=== PATIENT | male | born 1965 | race Caucasian/White ===

== ENCOUNTER 2018-02-13 11:44 | Inpatient (IN) | payer OTHER ==
[2018-02-13 12:08] VITALS: BMI 26.6
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
[2018-02-13] MEDS ORDERED: ACETAMINOPHEN 325 MG TABLET (FP) PO PRN (14:27)
[2018-02-13] MEDS ORDERED: MENTHOL/PHENOL 1 EACH UD MM PRN (14:27)
[2018-02-13] MEDS ORDERED: MAG HYDROX/AL HYDROX/SIMETH 30 ML UNIT-DOSE CUP PO PRN (14:27)
[2018-02-13] MEDS ORDERED: MAGNESIUM CITRATE 300 ML BOTTLE PO PRN (14:27)
[2018-02-13] MEDS ORDERED: LOPERAMIDE HCL 2 MG CAPSULE PO PRN (14:27)
[2018-02-13] MEDS ORDERED: guaiFENesin/D-METHORPHAN HB 10 ML UNIT-DOSE CUPS PO PRN (14:27)
[2018-02-13] MEDS ORDERED: P-EPHED 60MG/TRIPROLIDI 2.5MG TABLET PO PRN (14:27)
[2018-02-13] MEDS ORDERED: IBUPROFEN 400 MG TABLET (FP) PO PRN (14:27)
[2018-02-13] MEDS ORDERED: NICOTINE POLACRILEX 2 MG GUM BUC PRN (14:27)
[2018-02-13] MEDS ORDERED: MAGNESIUM HYDROX 2400MG/30ML ORAL SUSPENSION 30 ML CUP PO PRN (14:27)
[2018-02-13] MEDS ORDERED: METHADONE HCL 10 MG TABLET (FOR DETOX USE ONLY) PO ONE ×2 (15:35→23:00)
[2018-02-13] MEDS: diazePAM 5 MG TABLET PO PRN ×2 (17:51→22:39)
[2018-02-13] MEDS: NICOTINE 14 MG/24 HOURS TOPICAL PATCH TD SCH (17:53)
[2018-02-13] MEDS ORDERED: MELATONIN 5 MG TABLETS PO PRN (22:00)
[2018-02-13] MEDS: THIAMINE HCL 100 MG TABLET (FP) PO SCH (22:39)
[2018-02-14] MEDS ORDERED: TRIMETHOBENZAMIDE HCL 200MG/2ML INJ IM PRN (03:05)
[2018-02-14] MEDS: diazePAM 5 MG TABLET PO PRN ×3 (04:22→21:04)
[2018-02-14] MEDS ORDERED: METHADONE HCL 10 MG TABLET (FOR DETOX USE ONLY) PO ONE (10:00)
[2018-02-14] MEDS: PRENATAL VITAMINS W/ FOLIC ACID TABLET (FP) PO SCH (10:27)
[2018-02-14] MEDS: NICOTINE 14 MG/24 HOURS TOPICAL PATCH TD SCH (10:27)
[2018-02-14 10:58] LABS: HEMATOCRIT 39.7 % (35.4-49); HEMOGLOBIN 13.2 GM/dL (11.7-16.9); MCH 30.5 pg (25.7-33.7); MCHC 33.4 g/dl (32.0-35.9); MEAN CELL VOLUME 91.4 fl (80-96); MEAN PLT VOLUME 10.1 fl (7.5-11.1); PLATELET COUNT 170 K/MM3 (134-434); RBC 4.34 M/mm3 (4.00-5.60); RDW 14.2 % (11.9-15.9); WHITE BLOOD COUNT 6.4 K/mm3 (4.0-10.0)
--- NOTE | 2018-02-14 11:01 | PN ---
[facility]HS COWS - Scale Resting Pulse: 0= [place] 80 or Below Sweatin= Chills/Flushing Restless Observation: 3= Extraneous Movement Pupil Size: 1= Pupils >than Normal Bone or Joint Aches: 2= Severe Diffuse Aches Runny Nose/ Eye Tearin= Runny Nose/Eyes GI Upset > 30mins: 3= Vomiting/Diarrhea Tremor Observation of Outstretched Hands: 2= Slight Tremor Visible Yawning Observation: 1= 1-2x During Session Anxiety or Irritability: 2=Irritable/Anxious Goose Flesh Skin: 0=Smooth Skin COWS Score: 17 S Progress Note (SOAP) Subjective: alert,irritable,anxious,interrupted sleep,tremor,pain in the body and back Objective: 02/14/18 10:59 Vital Signs Temperature 98.7 F 02/14/18 09:52 Pulse Rate 77 02/14/18 09:52 Respiratory Rate 20 02/14/18 09:52 Blood Pressure 154/80 02/14/18 09:52 O2 Sat by Pulse Oximetry (%) ekg sinus bradycardia 54/min qt/qtc 424/402 no chest pain,no sob,no dizziness Laboratory Last Values WBC 6.4 K/mm3 (4.0-10.0) 02/14/18 06:00 RBC 4.34 M/mm3 (4.00-5.60) 02/14/18 06:00 Hgb 13.2 GM/dL (11.7-16.9) 02/14/18 06:00 Hct 39.7 % (35.4-49) 02/14/18 06:00 MCV 91.4 fl (80-96) 02/14/18 06:00 MCH 30.5 pg (25.7-33.7) 02/14/18 06:00 MCHC 33.4 g/dl (32.0-35.9) 02/14/18 06:00 RDW 14.2 % (11.9-15.9) 02/14/18 06:00 Plt Count 170 K/MM3 (134-434) 02/14/18 06:00 MPV 10.1 fl (7.5-11.1) 02/14/18 06:00 labs pending Assessment: 02/14/18 11:00 withdrawal symptom Plan: continue detox
[2018-02-14 11:31] LABS: CHLORIDE 105 mmol/L (98-107); POTASSIUM 5.2 mmol/L (3.5-5.1); SODIUM 141 mmol/L (136-145)
[2018-02-14 11:55] LABS: SICKLE CELL SCREEN NEGATIVE (NEGATIVE)
[2018-02-14 11:58] LABS: ALBUMIN 3.8 g/dl (3.4-5.0); ALK PHOS 60 U/L (45-117); ANION GAP 8 MMOL/L (8-16); BILIRUBIN,TOTAL 0.4 mg/dL (0.2-1.0); BLOOD UREA NITROGEN 20 mg/dL (7-18); CALCIUM 9.1 mg/dL (8.5-10.1); CO2 28 mmol/L (21-32); CREATININE 0.8 mg/dL (0.7-1.3); GLUCOSE,RANDOM 79 mg/dL (74-106); SGOT/AST 21 U/L (15-37); SGPT/ALT 24 U/L (12-78); TOT PROT 7.3 g/dl (6.4-8.2)
[2018-02-14] MEDS: ONDANSETRON *ODT* 4 MG TABLET SL PRN ×2 (12:07→18:17)
[2018-02-14] MEDS: CYCLOBENZAPRINE HCL 10 MG TABLET (FP) PO PRN ×2 (12:07→21:03)
[2018-02-14] MEDS: cloNIDine HCL 0.1 MG TABLET PO SCH ×2 (12:07→21:03)
--- NOTE | 2018-02-14 20:18 | EKG ---
Test Reason : Blood Pressure : / mmHG Vent. Rate : 054 BPM Atrial Rate : 054 BPM P-R Int : 140 ms QRS Dur : 100 ms QT Int : 424 ms P-R-T Axes : 052 -04 014 degrees QTc Int : 402 ms SINUS BRADYCARDIA OTHERWISE NORMAL ECG NO PREVIOUS ECGS AVAILABLE Confirmed by WARNER DE LUNA MD ([id number]) on 02/14/2018 8:18:07 PM Referred By: Confirmed By:WARNER DE LUNA MD
[2018-02-14] MEDS: THIAMINE HCL 100 MG TABLET (FP) PO SCH (22:57)
[2018-02-15] MEDS ORDERED: METHADONE HCL 5 MG TABLET (FOR DETOX USE ONLY) PO ONE (10:00)
--- NOTE | 2018-02-15 10:12 | PN ---
S CIWA - CIWA Score Nausea/Vomitin Muscle Tremors: 3 Anxiety: 3 Agitation: 3 Paroxysmal Sweats: 2 Orientation: 0-Oriented Tacttile Disturbances: 1-Very Mild Itch/Numbness Auditory Disturbances: 1-Very Mild Visual Disturbances: 0-None Headache: 2-Mild CIWA-Ar Total Score: 18 S Progress Note (SOAP) Subjective: alert,irritable,anxious,interrupted sleep,tremor,vomiting Objective: 02/15/18 10:18 Vital Signs Temperature 98.2 F 02/15/18 09:25 Pulse Rate 72 02/15/18 09:25 Respiratory Rate 19 02/15/18 09:25 Blood Pressure 152/79 02/15/18 09:25 O2 Sat by Pulse Oximetry (%) Laboratory Last Values WBC 6.4 K/mm3 (4.0-10.0) 02/14/18 06:00 RBC 4.34 M/mm3 (4.00-5.60) 02/14/18 06:00 Hgb 13.2 GM/dL (11.7-16.9) 02/14/18 06:00 Hct 39.7 % (35.4-49) 02/14/18 06:00 MCV 91.4 fl (80-96) 02/14/18 06:00 MCH 30.5 pg (25.7-33.7) 02/14/18 06:00 MCHC 33.4 g/dl (32.0-35.9) 02/14/18 06:00 RDW 14.2 % (11.9-15.9) 02/14/18 06:00 Plt Count 170 K/MM3 (134-434) 02/14/18 06:00 MPV 10.1 fl (7.5-11.1) 02/14/18 06:00 Sickle Cell Screen Negative (NEGATIVE) 02/14/18 06:00 Sodium 141 mmol/L (136-145) 02/14/18 06:00 Potassium 5.2 mmol/L (3.5-5.1) H 02/14/18 06:00 Chloride 105 mmol/L (98-107) 02/14/18 06:00 Carbon Dioxide 28 mmol/L (21-32) 02/14/18 06:00 Anion Gap 8 MMOL/L (8-16) 02/14/18 06:00 BUN 20 mg/dL (7-18) H 02/14/18 06:00 Creatinine 0.8 mg/dL (0.7-1.3) 02/14/18 06:00 Creat Clearance w eGFR > 60 (>60) 02/14/18 06:00 Random Glucose 79 mg/dL (74-106) 02/14/18 06:00 Calcium 9.1 mg/dL (8.5-10.1) 02/14/18 06:00 Total Bilirubin 0.4 mg/dL (0.2-1.0) 02/14/18 06:00 AST 21 U/L (15-37) 02/14/18 06:00 ALT 24 U/L (12-78) 02/14/18 06:00 Alkaline Phosphatase 60 U/L (45-117) 02/14/18 06:00 Total Protein 7.3 g/dl (6.4-8.2) 02/14/18 06:00 Albumin 3.8 g/dl (3.4-5.0) 02/14/18 06:00 RPR Titer Nonreactive (NONREACTIVE) 02/14/18 06:00 HIV 1&2 Antibody Screen Negative 02/13/18 15:00 HIV P24 Antigen Negative 02/13/18 15:00 Assessment: 02/15/18 10:19 withdrawal symptom Plan: continue detox,encourage fluid,dehydration,repeat bmp today
[2018-02-15] MEDS: cloNIDine HCL 0.1 MG TABLET PO SCH ×2 (11:07→22:22)
[2018-02-15] MEDS: PRENATAL VITAMINS W/ FOLIC ACID TABLET (FP) PO SCH (11:07)
[2018-02-15] MEDS: NICOTINE 14 MG/24 HOURS TOPICAL PATCH TD SCH (11:08)
[2018-02-15 15:38] LABS: ANION GAP 12 MMOL/L (8-16); BLOOD UREA NITROGEN 12 mg/dL (7-18); CALCIUM 9.5 mg/dL (8.5-10.1); CHLORIDE 104 mmol/L (98-107); CO2 26 mmol/L (21-32); CREATININE 0.8 mg/dL (0.7-1.3); GLUCOSE,RANDOM 116 mg/dL (74-106); SODIUM 142 mmol/L (136-145)
[2018-02-15 16:38] LABS: URINE APPEARANCE CLEAR; URINE BILIRUBIN NEGATIVE (<2.0 mg/dL); URINE COLOR YELLOW; URINE GLUCOSE (UA) NEGATIVE (NEGATIVE); URINE KETONE NEGATIVE (NEGATIVE); URINE LEUK ESTERASE NEGATIVE (NEGATIVE); URINE NITRITE NEGATIVE (NEGATIVE); URINE PROTEIN NEGATIVE (NEGATIVE); URINE UROBILINOGEN NEGATIVE mg/dL (0.2-1.0)
[2018-02-15] MEDS: diazePAM 5 MG TABLET PO PRN (22:22)
[2018-02-15] MEDS: THIAMINE HCL 100 MG TABLET (FP) PO SCH (22:22)
[2018-02-15] MEDS: CYCLOBENZAPRINE HCL 10 MG TABLET (FP) PO PRN (22:23)
[2018-02-16] MEDS ORDERED: METHADONE HCL 5 MG TABLET (FOR DETOX USE ONLY) PO ONE (10:00)
[2018-02-16] MEDS: NICOTINE 14 MG/24 HOURS TOPICAL PATCH TD SCH (10:48)
[2018-02-16] MEDS: PRENATAL VITAMINS W/ FOLIC ACID TABLET (FP) PO SCH (10:48)
[2018-02-16] MEDS: cloNIDine HCL 0.1 MG TABLET PO SCH ×2 (10:48→22:42)
--- NOTE | 2018-02-16 10:54 | PN ---
BHS Progress Note (SOAP) Subjective: alert,irritable,anxious,interrupted sleep,tremor,pain in the body and back Objective: 02/16/18 10:53 Vital Signs Temperature 98.4 F 02/16/18 10:10 Pulse Rate 91 H 02/16/18 10:10 Respiratory Rate 18 02/16/18 10:10 Blood Pressure 124/92 02/16/18 10:10 O2 Sat by Pulse Oximetry (%) Assessment: 02/16/18 10:54 withdrawal symptom Plan: continue detox
[2018-02-16] MEDS: CYCLOBENZAPRINE HCL 10 MG TABLET (FP) PO PRN (22:42)
[2018-02-16] MEDS: THIAMINE HCL 100 MG TABLET (FP) PO SCH (22:42)
[2018-02-17] MEDS ORDERED: METHADONE HCL 10 MG TABLET (FOR DETOX USE ONLY) PO ONE (10:00)
[2018-02-17] MEDS: PRENATAL VITAMINS W/ FOLIC ACID TABLET (FP) PO SCH (11:04)
[2018-02-17] MEDS: NICOTINE 14 MG/24 HOURS TOPICAL PATCH TD SCH (11:04)
[2018-02-17] MEDS: cloNIDine HCL 0.1 MG TABLET PO SCH ×2 (11:04→23:02)
--- NOTE | 2018-02-17 11:40 | PN ---
BHS Progress Note (SOAP) Subjective: Shakes, sweats and interrupted sleep Objective: 02/17/18 11:39 Vital Signs - 8 hr 02/17/18 02/17/18 02/17/18 06:00 06:30 09:20 Temperature 97.5 F L 98.1 F Pulse Rate 66 66 Respiratory 18 19 18 Rate Blood Pressure 125/73 121/65 Laboratory Last Values WBC 6.4 K/mm3 (4.0-10.0) 02/14/18 06:00 RBC 4.34 M/mm3 (4.00-5.60) 02/14/18 06:00 Hgb 13.2 GM/dL (11.7-16.9) 02/14/18 06:00 Hct 39.7 % (35.4-49) 02/14/18 06:00 MCV 91.4 fl (80-96) 02/14/18 06:00 MCH 30.5 pg (25.7-33.7) 02/14/18 06:00 MCHC 33.4 g/dl (32.0-35.9) 02/14/18 06:00 RDW 14.2 % (11.9-15.9) 02/14/18 06:00 Plt Count 170 K/MM3 (134-434) 02/14/18 06:00 MPV 10.1 fl (7.5-11.1) 02/14/18 06:00 Sickle Cell Screen Negative (NEGATIVE) 02/14/18 06:00 Sodium 142 mmol/L (136-145) 02/15/18 11:40 Potassium 4.0 mmol/L (3.5-5.1) D 02/15/18 11:40 Chloride 104 mmol/L (98-107) 02/15/18 11:40 Carbon Dioxide 26 mmol/L (21-32) 02/15/18 11:40 Anion Gap 12 MMOL/L (8-16) 02/15/18 11:40 BUN 12 mg/dL (7-18) 02/15/18 11:40 Creatinine 0.8 mg/dL (0.7-1.3) 02/15/18 11:40 Creat Clearance w eGFR > 60 (>60) 02/15/18 11:40 Random Glucose 116 mg/dL (74-106) H D 02/15/18 11:40 Calcium 9.5 mg/dL (8.5-10.1) 02/15/18 11:40 Total Bilirubin 0.4 mg/dL (0.2-1.0) 02/14/18 06:00 AST 21 U/L (15-37) 02/14/18 06:00 ALT 24 U/L (12-78) 02/14/18 06:00 Alkaline Phosphatase 60 U/L (45-117) 02/14/18 06:00 Total Protein 7.3 g/dl (6.4-8.2) 02/14/18 06:00 Albumin 3.8 g/dl (3.4-5.0) 02/14/18 06:00 Urine Color Yellow 02/15/18 11:40 Urine Appearance Clear 02/15/18 11:40 Urine pH 8.0 (5.0-8.0) 02/15/18 11:40 Ur Specific [place] 1.015 (1.001-1.035) 02/15/18 11:40 Urine Protein Negative (NEGATIVE) 02/15/18 11:40 Urine Glucose (UA) Negative (NEGATIVE) 02/15/18 11:40 Urine Ketones Negative (NEGATIVE) 02/15/18 11:40 Urine Blood Negative (NEGATIVE) 02/15/18 11:40 Urine Nitrite Negative (NEGATIVE) 02/15/18 11:40 Urine Bilirubin Negative (<2.0 mg/dL) 02/15/18 11:40 Urine Urobilinogen Negative mg/dL (0.2-1.0) 02/15/18 11:40 Ur Leukocyte Esterase Negative (NEGATIVE) 02/15/18 11:40 RPR Titer Nonreactive (NONREACTIVE) 02/14/18 06:00 HIV 1&2 Antibody Screen Negative 02/13/18 15:00 HIV P24 Antigen Negative 02/13/18 15:00 Labs noted Assessment: 02/17/18 11:40 Withdrawal sx Plan: Continue detox
[2018-02-17] MEDS: THIAMINE HCL 100 MG TABLET (FP) PO SCH (23:02)
[2018-02-17] MEDS: CYCLOBENZAPRINE HCL 10 MG TABLET (FP) PO PRN (23:02)
[2018-02-18] MEDS ORDERED: METHADONE HCL 5 MG TABLET (FOR DETOX USE ONLY) PO ONE (06:00)
--- NOTE | 2018-02-18 09:10 | PN ---
[facility] Progress Note (SOAP) Subjective: Being discharged today. Denies withdrawal symptoms.Verbalizes an understanding of relapse prevention. States will f/u with outpatient referrals. Objective: Alert and oriented x 3. Respirations quiet and unlabored. Gait steady. Laboratory Tests 02/13/18 02/14/18 02/14/18 15:00 06:00 06:00 WBC 6.4 RBC 4.34 Hgb 13.2 Hct 39.7 MCV 91.4 MCH 30.5 MCHC 33.4 RDW 14.2 Plt Count 170 MPV 10.1 Sickle Cell Screen Negative Sodium 141 Potassium 5.2 H Chloride 105 Carbon Dioxide 28 Anion Gap 8 BUN 20 H Creatinine 0.8 Creat Clearance w eGFR > 60 Random Glucose 79 Calcium 9.1 Total Bilirubin 0.4 AST 21 ALT 24 Alkaline Phosphatase 60 Total Protein 7.3 Albumin 3.8 Urine Color Urine Appearance Urine pH Ur Specific [place] Urine Protein Urine Glucose (UA) Urine Ketones Urine Blood Urine Nitrite Urine Bilirubin Urine Urobilinogen Ur Leukocyte Esterase RPR Titer HIV 1&2 Antibody Screen Negative HIV P24 Antigen Negative 02/14/18 02/15/18 02/15/18 06:00 11:40 11:40 WBC RBC Hgb Hct MCV MCH MCHC RDW Plt Count MPV Sickle Cell Screen Sodium 142 Potassium 4.0 D Chloride 104 Carbon Dioxide 26 Anion Gap 12 BUN 12 Creatinine 0.8 Creat Clearance w eGFR > 60 Random Glucose 116 H D Calcium 9.5 Total Bilirubin AST ALT Alkaline Phosphatase Total Protein Albumin Urine Color Yellow Urine Appearance Clear Urine pH 8.0 Ur Specific [place] 1.015 Urine Protein Negative Urine Glucose (UA) Negative Urine Ketones Negative Urine Blood Negative Urine Nitrite Negative Urine Bilirubin Negative Urine Urobilinogen Negative Ur Leukocyte Esterase Negative RPR Titer Nonreactive HIV 1&2 Antibody Screen HIV P24 Antigen Vital Signs (72 hours) 02/15/18 02/15/18 02/15/18 15:02 17:19 22:48 Temperature 97.9 F 98.4 F 98.4 F Pulse Rate 73 83 80 Respiratory 19 19 18 Rate Blood Pressure 133/93 129/70 164/89 02/16/18 02/16/18 02/16/18 03:30 07:09 10:10 Temperature 97.7 F 98.4 F Pulse Rate 71 91 H Respiratory 18 18 18 Rate Blood Pressure 143/79 124/92 02/16/18 02/16/1802/16/18 14:12 18:11 22:35 Temperature 97.7 F 97.9 F 98.2 F Pulse Rate 80 84 78 Respiratory 16 19 19 Rate Blood Pressure 115/59 111/61 132/89 02/17/18 02/17/18 02/17/18 00:30 03:30 06:00 Temperature 97.5 F L Pulse Rate 66 Respiratory 19 18 18 Rate Blood Pressure 125/73 02/17/18 02/17/18 02/17/18 06:30 09:20 14:46 Temperature 98.1 F 98.1 F Pulse Rate 66 82 Respiratory 19 18 18 Rate Blood Pressure 121/65 107/60 02/17/18 02/17/18 02/18/18 17:38 22:44 06:00 Temperature 98.4 F 98.1 F 97.7 F Pulse Rate 71 76 70 Respiratory 18 18 18 Rate Blood Pressure 126/57 127/79 121/72 02/18/18 10:00 Temperature 97.5 F L Pulse Rate 61 Respiratory 16 Rate Blood Pressure 126/79 Labs and V/S reviewed. 02/18/18 12:53 Assessment: No withdrawal symptoms. 02/18/18 12:56
[2018-02-18 11:14] VITALS: BP 126/79; PULSE 61; TEMP 97.5
--- NOTE | 2018-02-18 13:03 | DS ---
[facility] Detox Discharge Summary Admission Date: 02/13/18 Discharge Date: 02/18/18 - History Present History: Opioid Dependence Pertinent Past History: Denies significant PMH. Will continue f/u PCP as needed. - Physical Exam Results Vital Signs: Vital Signs Temperature 97.5 F L 02/18/18 10:00 Pulse Rate 61 02/18/18 10:00 Respiratory Rate 16 02/18/18 10:00 Blood Pressure 126/79 02/18/18 10:00 O2 Sat by Pulse Oximetry (%) Pertinent Admission Physical Exam Findings: Withdrawal symptoms. Laboratory Tests 02/13/18 02/14/18 02/14/18 15:00 06:00 06:00 WBC 6.4 RBC 4.34 Hgb 13.2 Hct 39.7 MCV 91.4 MCH 30.5 MCHC 33.4 RDW 14.2 Plt Count 170 MPV 10.1 Sickle Cell Screen Negative Sodium 141 Potassium 5.2 H Chloride 105 Carbon Dioxide 28 Anion Gap 8 BUN 20 H Creatinine 0.8 Creat Clearance w eGFR > 60 Random Glucose 79 Calcium 9.1 Total Bilirubin 0.4 AST 21 ALT 24 Alkaline Phosphatase 60 Total Protein 7.3 Albumin 3.8 Urine Color Urine Appearance Urine pH Ur Specific [place] Urine Protein Urine Glucose (UA) Urine Ketones Urine Blood Urine Nitrite Urine Bilirubin Urine Urobilinogen Ur Leukocyte Esterase RPR Titer HIV 1&2 Antibody Screen Negative HIV P24 Antigen Negative 02/14/18 02/15/18 02/15/18 06:00 11:40 11:40 WBC RBC Hgb Hct MCV MCH MCHC RDW Plt Count MPV Sickle Cell Screen Sodium 142 Potassium 4.0 D Chloride 104 Carbon Dioxide 26 Anion Gap 12 BUN 12 Creatinine 0.8 Creat Clearance w eGFR > 60 Random Glucose 116 H D Calcium 9.5 Total Bilirubin AST ALT Alkaline Phosphatase Total Protein Albumin Urine Color Yellow Urine Appearance Clear Urine pH 8.0 Ur Specific [place] 1.015 Urine Protein Negative Urine Glucose (UA) Negative Urine Ketones Negative Urine Blood Negative Urine Nitrite Negative Urine Bilirubin Negative Urine Urobilinogen Negative Ur Leukocyte Esterase Negative RPR Titer Nonreactive HIV 1&2 Antibody Screen HIV P24 Antigen Labs reviewed. - Treatment Hospital Course: Detox Protocol Followed, Detoxed Safely, Responded well, Discharged Condition Good - Medication Discharge Medications: Ambulatory Orders NK [No Known Home Medication] 02/13/18 - Diagnosis (1) Dehydration Status: Acute (2) Nicotine dependence Status: Acute Qualifiers: Nicotine product type: cigarettes Substance use status: in withdrawal Qualified Code(s): F17.213 - Nicotine dependence, cigarettes, with withdrawal (3) Opioid dependence with withdrawal Status: Acute - AMA Did Patient Leave Against Medical Advice: No
== END 2018-02-18 09:39 | disposition home or self-care (01) | DRG 897 ==
LOC: YASAS 11:44 → Y6N 15:19
PROVIDERS: ADMIT Surgery; ATTEND Surgery
PROC: HZ2ZZZZ Detoxification Services for Substance Abuse Treatment (ICD-10-PCS; principal; 2018-02-13)
DX: F11.23 Opioid dependence with withdrawal (principal); F17.213 Nicotine dependence, cigarettes, with withdrawal; E86.0 Dehydration
CPT/HCPCS: 36415; 71045-TC-FY; 80048; 80053; 81003; 85027; 85660; 86593; 87389; 93005; 93010; J0735; Q0162

== ENCOUNTER 2018-10-06 14:19 | Inpatient (IN) | payer OTHER ==
[2018-10-06 15:55] VITALS: BMI 26.4
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
[2018-10-06] MEDS ORDERED: MAGNESIUM HYDROX 2400MG/30ML ORAL SUSPENSION 30 ML CUP PO PRN (17:19)
[2018-10-06] MEDS ORDERED: MAG HYDROX/AL HYDROX/SIMETH 30 ML UNIT-DOSE CUP PO PRN (17:19)
[2018-10-06] MEDS ORDERED: MAGNESIUM CITRATE 300 ML BOTTLE PO PRN (17:19)
[2018-10-06] MEDS ORDERED: BISMUTH SUBSALICYLATE 524 MG/30 ML UD PO PRN (17:19)
[2018-10-06] MEDS ORDERED: MENTHOL/PHENOL 1 EACH UD MM PRN (17:19)
[2018-10-06] MEDS ORDERED: METHOCARBAMOL 500 MG TABLET PO PRN (17:19)
[2018-10-06] MEDS ORDERED: ACETAMINOPHEN 325 MG TABLET (FP) PO PRN ×2 (17:19)
[2018-10-06] MEDS ORDERED: METHADONE HCL 10 MG TABLET (FOR DETOX USE ONLY) PO ONE ×2 (17:21→23:00)
[2018-10-06] MEDS: diazePAM 5 MG TABLET PO PRN (18:13)
[2018-10-06] MEDS: NICOTINE 14 MG/24 HOURS TOPICAL PATCH TD SCH (18:14)
[2018-10-06] MEDS: HYDROCORTISONE 0.5% TOPICAL CREAM 30 GM TUBE TP SCH (22:29)
[2018-10-06] MEDS: THIAMINE HCL 100 MG TABLET (FP) PO SCH (22:30)
[2018-10-07] MEDS ORDERED: METHADONE HCL 10 MG TABLET (FOR DETOX USE ONLY) PO ONE (10:00)
[2018-10-07] MEDS: HYDROCORTISONE 0.5% TOPICAL CREAM 30 GM TUBE TP SCH ×2 (10:23→22:04)
[2018-10-07] MEDS: diazePAM 5 MG TABLET PO PRN ×2 (10:23→22:06)
[2018-10-07] MEDS: PRENATAL VITAMINS W/ FOLIC ACID TABLET (FP) PO SCH (10:23)
[2018-10-07] MEDS: NICOTINE 14 MG/24 HOURS TOPICAL PATCH TD SCH (10:23)
[2018-10-07 10:25] LABS: ALBUMIN 3.3 g/dl (3.4-5.0); ALK PHOS 62 U/L (45-117); ANION GAP 4 MMOL/L (8-16); BILIRUBIN,TOTAL 0.3 mg/dL (0.2-1); BLOOD UREA NITROGEN 17 mg/dL (7-18); CALCIUM 8.3 mg/dL (8.5-10.1); CHLORIDE 107 mmol/L (98-107); CO2 28 mmol/L (21-32); CREATININE 0.7 mg/dL (0.55-1.3); GLUCOSE,RANDOM 96 mg/dL (74-106); POTASSIUM 4.4 mmol/L (3.5-5.1); SGOT/AST 17 U/L (15-37); SGPT/ALT 19 U/L (13-61); SODIUM 139 mmol/L (136-145); TOT PROT 6.6 g/dl (6.4-8.2)
[2018-10-07 10:27] LABS: HEMATOCRIT 41.9 % (35.4-49); HEMOGLOBIN 13.7 GM/dL (11.7-16.9); MCH 30.9 pg (25.7-33.7); MCHC 32.7 g/dl (32.0-35.9); MEAN CELL VOLUME 94.3 fl (80-96); MEAN PLT VOLUME 9.2 fl (7.5-11.1); PLATELET COUNT 174 K/MM3 (134-434); RBC 4.45 M/mm3 (4.00-5.60); RDW 13.8 % (11.9-15.9); WHITE BLOOD COUNT 4.5 K/mm3 (4.0-10.0)
--- NOTE | 2018-10-07 15:03 | PN ---
BHS COWS - Scale Resting Pulse: 0= [place] 80 or Below Sweatin= Chills/Flushing Restless Observation: 1= Difficult to Sit Still Pupil Size: 1= Pupils >than Normal Bone or Joint Aches: 1= Mild Discomfort Runny Nose/ Eye Tearin= Nasal Congestion GI Upset > 30mins: 1= Stomach Cramp Tremor Observation of Outstretched Hands: 2= Slight Tremor Visible Yawning Observation: 1= 1-2x During Session Anxiety or Irritability: 2=Irritable/Anxious Goose Flesh Skin: 3=Piloerection COWS Score: 14 BHS Progress Note (SOAP) Subjective: restlessness anxiousness trouble sleep at night Objective: 10/07/18 15:02 Vital Signs Temperature 97.6 F 10/07/18 13:46 Pulse Rate 76 10/07/18 13:46 Respiratory Rate 18 10/07/18 13:46 Blood Pressure 125/85 10/07/18 13:46 O2 Sat by Pulse Oximetry (%) Laboratory Last Values WBC 4.5 K/mm3 (4.0-10.0) 10/07/18 07:15 RBC 4.45 M/mm3 (4.00-5.60) 10/07/18 07:15 Hgb 13.7 GM/dL (11.7-16.9) 10/07/18 07:15 Hct 41.9 % (35.4-49) 10/07/18 07:15 MCV 94.3 fl (80-96) 10/07/18 07:15 MCH 30.9 pg (25.7-33.7) 10/07/18 07:15 MCHC 32.7 g/dl (32.0-35.9) 10/07/18 07:15 RDW 13.8 % (11.9-15.9) 10/07/18 07:15 Plt Count 174 K/MM3 (134-434) 10/07/18 07:15 MPV 9.2 fl (7.5-11.1) 10/07/18 07:15 Sodium 139 mmol/L (136-145) 10/07/18 07:15 Potassium 4.4 mmol/L (3.5-5.1) 10/07/18 07:15 Chloride 107 mmol/L (98-107) 10/07/18 07:15 Carbon Dioxide 28 mmol/L (21-32) 10/07/18 07:15 Anion Gap 4 MMOL/L (8-16) L 10/07/18 07:15 BUN 17 mg/dL (7-18) 10/07/18 07:15 Creatinine 0.7 mg/dL (0.55-1.3) 10/07/18 07:15 Creat Clearance w eGFR 118.89 (>60) 10/07/18 07:15 Random Glucose 96 mg/dL (74-106) 10/07/18 07:15 Calcium 8.3 mg/dL (8.5-10.1) L 10/07/18 07:15 Total Bilirubin 0.3 mg/dL (0.2-1) 10/07/18 07:15 AST 17 U/L (15-37) 10/07/18 07:15 ALT 19 U/L (13-61) 10/07/18 07:15 Alkaline Phosphatase 62 U/L (45-117) 10/07/18 07:15 Total Protein 6.6 g/dl (6.4-8.2) 10/07/18 07:15 Albumin 3.3 g/dl (3.4-5.0) L 10/07/18 07:15 RPR Titer Nonreactive (NONREACTIVE) 10/07/18 07:15 lab noted Assessment: 10/07/18 15:02 Laboratory Last Values WBC 4.5 K/mm3 (4.0-10.0) 10/07/18 07:15 RBC 4.45 M/mm3 (4.00-5.60) 10/07/18 07:15 Hgb 13.7 GM/dL (11.7-16.9) 10/07/18 07:15 Hct 41.9 % (35.4-49) 10/07/18 07:15 MCV 94.3 fl (80-96) 10/07/18 07:15 MCH 30.9 pg (25.7-33.7) 10/07/18 07:15 MCHC 32.7 g/dl (32.0-35.9) 10/07/18 07:15 RDW 13.8 % (11.9-15.9) 10/07/18 07:15 Plt Count 174 K/MM3 (134-434) 10/07/18 07:15 MPV 9.2 fl (7.5-11.1) 10/07/18 07:15 Sodium 139 mmol/L (136-145) 10/07/18 07:15 Potassium 4.4 mmol/L (3.5-5.1) 10/07/18 07:15 Chloride 107 mmol/L (98-107) 10/07/18 07:15 Carbon Dioxide 28 mmol/L (21-32) 10/07/18 07:15 Anion Gap 4 MMOL/L (8-16) L 10/07/18 07:15 BUN 17 mg/dL (7-18) 10/07/18 07:15 Creatinine 0.7 mg/dL (0.55-1.3) 10/07/18 07:15 Creat Clearance w eGFR 118.89 (>60) 10/07/18 07:15 Random Glucose 96 mg/dL (74-106) 10/07/18 07:15 Calcium 8.3 mg/dL (8.5-10.1) L 10/07/18 07:15 Total Bilirubin 0.3 mg/dL (0.2-1) 10/07/18 07:15 AST 17 U/L (15-37) 10/07/18 07:15 ALT 19 U/L (13-61) 10/07/18 07:15 Alkaline Phosphatase 62 U/L (45-117) 10/07/18 07:15 Total Protein 6.6 g/dl (6.4-8.2) 10/07/18 07:15 Albumin 3.3 g/dl (3.4-5.0) L 10/07/18 07:15 RPR Titer Nonreactive (NONREACTIVE) 10/07/18 07:15 Vital Signs Temperature 97.6 F 10/07/18 13:46 Pulse Rate 76 10/07/18 13:46 Respiratory Rate 18 10/07/18 13:46 Blood Pressure 125/85 10/07/18 13:46 O2 Sat by Pulse Oximetry (%) Plan: withdrawal sx continue detox
[2018-10-07] MEDS: THIAMINE HCL 100 MG TABLET (FP) PO SCH (22:03)
[2018-10-07] MEDS: MELATONIN 5 MG TABLETS PO PRN (22:04)
[2018-10-08] MEDS: hydrOXYzine PAMOATE 25 MG CAPSULE (FP) PO PRN ×2 (00:35→22:19)
[2018-10-08] MEDS: diazePAM 5 MG TABLET PO PRN ×3 (02:16→19:27)
[2018-10-08] MEDS: IBUPROFEN 400 MG TABLET (FP) PO PRN (02:19)
[2018-10-08] MEDS: cloNIDine HCL 0.1 MG TABLET PO PRN ×2 (05:17→19:27)
[2018-10-08] MEDS ORDERED: METHADONE HCL 10 MG TABLET (FOR DETOX USE ONLY) PO ONE (10:00)
[2018-10-08] MEDS: HYDROCORTISONE 0.5% TOPICAL CREAM 30 GM TUBE TP SCH ×2 (10:09→22:24)
[2018-10-08] MEDS: PRENATAL VITAMINS W/ FOLIC ACID TABLET (FP) PO SCH (10:09)
[2018-10-08] MEDS: NICOTINE 14 MG/24 HOURS TOPICAL PATCH TD SCH (10:10)
--- NOTE | 2018-10-08 10:18 | PN ---
B[facility] COWS - Scale Resting Pulse: 0= [place] 80 or Below Sweatin= Chills/Flushing Restless Observation: 0= Sits Still Pupil Size: 1= Pupils >than Normal Bone or Joint Aches: 2= Severe Diffuse Aches Runny Nose/ Eye Tearin= Nasal Congestion GI Upset > 30mins: 2= Nausea/Diarrhea Tremor Observation of Outstretched Hands: 1= Tremor [place], Not Seen Yawning Observation: 1= 1-2x During Session Anxiety or Irritability: 1=Feels Anxious/Irritable Goose Flesh Skin: 0=Smooth Skin COWS Score: 10 S Progress Note (SOAP) Subjective: feeling ok with methadone detox mild indigestion discuss medication assisted maintenance treatment program Objective: 10/08/18 10:18 Vital Signs Temperature 97.2 F L 10/08/18 09:01 Pulse Rate 74 10/08/18 09:01 Respiratory Rate 18 10/08/18 09:01 Blood Pressure 114/83 10/08/18 09:01 O2 Sat by Pulse Oximetry (%) Laboratory Last Values WBC 4.5 K/mm3 (4.0-10.0) 10/07/18 07:15 RBC 4.45 M/mm3 (4.00-5.60) 10/07/18 07:15 Hgb 13.7 GM/dL (11.7-16.9) 10/07/18 07:15 Hct 41.9 % (35.4-49) 10/07/18 07:15 MCV 94.3 fl (80-96) 10/07/18 07:15 MCH 30.9 pg (25.7-33.7) 10/07/18 07:15 MCHC 32.7 g/dl (32.0-35.9) 10/07/18 07:15 RDW 13.8 % (11.9-15.9) 10/07/18 07:15 Plt Count 174 K/MM3 (134-434) 10/07/18 07:15 MPV 9.2 fl (7.5-11.1) 10/07/18 07:15 Sodium 139 mmol/L (136-145) 10/07/18 07:15 Potassium 4.4 mmol/L (3.5-5.1) 10/07/18 07:15 Chloride 107 mmol/L (98-107) 10/07/18 07:15 Carbon Dioxide 28 mmol/L (21-32) 10/07/18 07:15 Anion Gap 4 MMOL/L (8-16) L 10/07/18 07:15 BUN 17 mg/dL (7-18) 10/07/18 07:15 Creatinine 0.7 mg/dL (0.55-1.3) 10/07/18 07:15 Creat Clearance w eGFR 118.89 (>60) 10/07/18 07:15 Random Glucose 96 mg/dL (74-106) 10/07/18 07:15 Calcium 8.3 mg/dL (8.5-10.1) L 10/07/18 07:15 Total Bilirubin 0.3 mg/dL (0.2-1) 10/07/18 07:15 AST 17 U/L (15-37) 10/07/18 07:15 ALT 19 U/L (13-61) 10/07/18 07:15 Alkaline Phosphatase 62 U/L (45-117) 10/07/18 07:15 Total Protein 6.6 g/dl (6.4-8.2) 10/07/18 07:15 Albumin 3.3 g/dl (3.4-5.0) L 10/07/18 07:15 RPR Titer Nonreactive (NONREACTIVE) 10/07/18 07:15 lab noted Assessment: 10/08/18 10:18 opiate withdrawal sx Plan: continue detox
[2018-10-08] MEDS: MELATONIN 5 MG TABLETS PO PRN (22:20)
[2018-10-08] MEDS: THIAMINE HCL 100 MG TABLET (FP) PO SCH (22:20)
[2018-10-09] MEDS: IBUPROFEN 400 MG TABLET (FP) PO PRN (06:52)
[2018-10-09] MEDS: ONDANSETRON *ODT* 4 MG TABLET SL PRN (07:14)
[2018-10-09] MEDS ORDERED: METHADONE HCL 10 MG TABLET (FOR DETOX USE ONLY) PO ONE (10:00)
[2018-10-09] MEDS: PRENATAL VITAMINS W/ FOLIC ACID TABLET (FP) PO SCH (10:07)
[2018-10-09] MEDS: NICOTINE 14 MG/24 HOURS TOPICAL PATCH TD SCH ×2 (10:08→13:01)
[2018-10-09] MEDS: HYDROCORTISONE 0.5% TOPICAL CREAM 30 GM TUBE TP SCH ×2 (10:08→22:04)
[2018-10-09] MEDS: diazePAM 5 MG TABLET PO PRN (10:46)
[2018-10-09] MEDS ORDERED: cloNIDine HCL 0.1 MG TABLET PO PRN (11:03)
--- NOTE | 2018-10-09 11:06 | PN ---
BHS COWS - Scale Resting Pulse: 0= [place] 80 or Below Sweatin= Chills/Flushing Restless Observation: 1= Difficult to Sit Still Pupil Size: 1= Pupils >than Normal Bone or Joint Aches: 1= Mild Discomfort Runny Nose/ Eye Tearin= Nasal Congestion GI Upset > 30mins: 1= Stomach Cramp Tremor Observation of Outstretched Hands: 1= Tremor [place], Not Seen Yawning Observation: 1= 1-2x During Session Anxiety or Irritability: 1=Feels Anxious/Irritable Goose Flesh Skin: 0=Smooth Skin COWS Score: 9 BHS Progress Note (SOAP) Subjective: patient vomited x 1 after breakfast treated with zofran sl around 7 am with good effect that tolerated 10 am methadone well showered with bp elevation received valium prn resting on bed discontinue motrin begin zantace Objective: 10/09/18 11:12 Vital Signs Temperature 98.4 F 10/09/18 09:00 Pulse Rate 71 10/09/18 10:54 Respiratory Rate 20 10/09/18 09:00 Blood Pressure 164/89 10/09/18 10:54 O2 Sat by Pulse Oximetry (%) Laboratory Last Values WBC 4.5 K/mm3 (4.0-10.0) 10/07/18 07:15 RBC 4.45 M/mm3 (4.00-5.60) 10/07/18 07:15 Hgb 13.7 GM/dL (11.7-16.9) 10/07/18 07:15 Hct 41.9 % (35.4-49) 10/07/18 07:15 MCV 94.3 fl (80-96) 10/07/18 07:15 MCH 30.9 pg (25.7-33.7) 10/07/18 07:15 MCHC 32.7 g/dl (32.0-35.9) 10/07/18 07:15 RDW 13.8 % (11.9-15.9) 10/07/18 07:15 Plt Count 174 K/MM3 (134-434) 10/07/18 07:15 MPV 9.2 fl (7.5-11.1) 10/07/18 07:15 Sodium 139 mmol/L (136-145) 10/07/18 07:15 Potassium 4.4 mmol/L (3.5-5.1) 10/07/18 07:15 Chloride 107 mmol/L (98-107) 10/07/18 07:15 Carbon Dioxide 28 mmol/L (21-32) 10/07/18 07:15 Anion Gap 4 MMOL/L (8-16) L 10/07/18 07:15 BUN 17 mg/dL (7-18) 10/07/18 07:15 Creatinine 0.7 mg/dL (0.55-1.3) 10/07/18 07:15 Creat Clearance w eGFR 118.89 (>60) 10/07/18 07:15 Random Glucose 96 mg/dL (74-106) 10/07/18 07:15 Calcium 8.3 mg/dL (8.5-10.1) L 10/07/18 07:15 Total Bilirubin 0.3 mg/dL (0.2-1) 10/07/18 07:15 AST 17 U/L (15-37) 10/07/18 07:15 ALT 19 U/L (13-61) 10/07/18 07:15 Alkaline Phosphatase 62 U/L (45-117) 10/07/18 07:15 Total Protein 6.6 g/dl (6.4-8.2) 10/07/18 07:15 Albumin 3.3 g/dl (3.4-5.0) L 10/07/18 07:15 RPR Titer Nonreactive (NONREACTIVE) 10/07/18 07:15 lab noted Assessment: 10/09/18 11:13 withdrawal sx Plan: continue detox
[2018-10-09] MEDS: RANITIDINE HCL 150 MG TABLET (FP) PO SCH ×2 (11:14→22:03)
[2018-10-09] MEDS: MELATONIN 5 MG TABLETS PO PRN (22:04)
[2018-10-09] MEDS: THIAMINE HCL 100 MG TABLET (FP) PO SCH (22:04)
[2018-10-10] MEDS: ONDANSETRON *ODT* 4 MG TABLET SL PRN (05:09)
[2018-10-10] MEDS ORDERED: METHADONE HCL 5 MG TABLET (FOR DETOX USE ONLY) PO ONE (06:00)
[2018-10-10 06:17] VITALS: BP 131/77; PULSE 59; TEMP 98.2
--- NOTE | 2018-10-10 11:22 | DS ---
[facility] Detox Discharge Summary Admission Date: 10/06/18 Discharge Date: 10/10/18 - History Present History: Opioid Dependence Additional Comments: 53 years old male admitted on 10/06/18 for opiate withdrawal stabilization completed detox regimen aftercare [facility] Pertinent Past History: bring in medication list and lab report to aftercare appointment - Physical Exam Results Vital Signs: Vital Signs Temperature 98.2 F 10/10/18 06:17 Pulse Rate 59 L 10/10/18 06:17 Respiratory Rate 18 10/10/18 06:17 Blood Pressure 131/77 10/10/18 06:17 O2 Sat by Pulse Oximetry (%) Pertinent Admission Physical Exam Findings: opiate withdrawal sxs Laboratory Last Values WBC 4.5 K/mm3 (4.0-10.0) 10/07/18 07:15 RBC 4.45 M/mm3 (4.00-5.60) 10/07/18 07:15 Hgb 13.7 GM/dL (11.7-16.9) 10/07/18 07:15 Hct 41.9 % (35.4-49) 10/07/18 07:15 MCV 94.3 fl (80-96) 10/07/18 07:15 MCH 30.9 pg (25.7-33.7) 10/07/18 07:15 MCHC 32.7 g/dl (32.0-35.9) 10/07/18 07:15 RDW 13.8 % (11.9-15.9) 10/07/18 07:15 Plt Count 174 K/MM3 (134-434) 10/07/18 07:15 MPV 9.2 fl (7.5-11.1) 10/07/18 07:15 Sodium 139 mmol/L (136-145) 10/07/18 07:15 Potassium 4.4 mmol/L (3.5-5.1) 10/07/18 07:15 Chloride 107 mmol/L (98-107) 10/07/18 07:15 Carbon Dioxide 28 mmol/L (21-32) 10/07/18 07:15 Anion Gap 4 MMOL/L (8-16) L 10/07/18 07:15 BUN 17 mg/dL (7-18) 10/07/18 07:15 Creatinine 0.7 mg/dL (0.55-1.3) 10/07/18 07:15 Creat Clearance w eGFR 118.89 (>60) 10/07/18 07:15 Random Glucose 96 mg/dL (74-106) 10/07/18 07:15 Calcium 8.3 mg/dL (8.5-10.1) L 10/07/18 07:15 Total Bilirubin 0.3 mg/dL (0.2-1) 10/07/18 07:15 AST 17 U/L (15-37) 10/07/18 07:15 ALT 19 U/L (13-61) 10/07/18 07:15 Alkaline Phosphatase 62 U/L (45-117) 10/07/18 07:15 Total Protein 6.6 g/dl (6.4-8.2) 10/07/18 07:15 Albumin 3.3 g/dl (3.4-5.0) L 10/07/18 07:15 RPR Titer Nonreactive (NONREACTIVE) 10/07/18 07:15 lab noted - Treatment Hospital Course: Detox Protocol Followed, Detoxed Safely, Responded well, Discharged Condition Good, Rehab Referral Accepted Patient has Accepted a Rehab Referral to: [facility] - Medication Discharge Medications: Ambulatory Orders NK [No Known Home Medication] 02/13/18 - Diagnosis (1) Nicotine dependence Status: Acute Qualifiers: Nicotine product type: cigarettes Substance use status: in withdrawal Qualified Code(s): F17.213 - Nicotine dependence, cigarettes, with withdrawal (2) Opioid dependence with withdrawal Status: Acute - AMA Did Patient Leave Against Medical Advice: No
== END 2018-10-10 08:35 | disposition home or self-care (01) | DRG 897 ==
LOC: YASAS 14:19 → Y3N 17:30
PROVIDERS: ADMIT Surgery; ATTEND Surgery
PROC: HZ2ZZZZ Detoxification Services for Substance Abuse Treatment (ICD-10-PCS; principal; 2018-10-06)
DX: F11.23 Opioid dependence with withdrawal (principal); F17.213 Nicotine dependence, cigarettes, with withdrawal; E86.0 Dehydration
CPT/HCPCS: 36415; 80053; 85027; 86593; J0735; Q0162

== ENCOUNTER 2020-08-07 11:01 | Inpatient (IN) | payer OTHER ==
[2020-08-07 11:47] VITALS: BMI 25.8
[2020-08-07] MEDS ORDERED: MENTHOL/PHENOL 1 EACH UD MM PRN (12:22)
[2020-08-07] MEDS ORDERED: METHADONE HCL 10 MG TABLET (FOR DETOX USE ONLY) PO ONE (12:22)
[2020-08-07] MEDS ORDERED: MAGNESIUM HYDROX 2400MG/30ML ORAL SUSPENSION 30 ML CUP PO PRN (12:22)
[2020-08-07] MEDS ORDERED: NICOTINE POLACRILEX 2 MG GUM BUC PRN (12:22)
[2020-08-07] MEDS ORDERED: IBUPROFEN 400 MG TABLET (FP) PO PRN (12:22)
[2020-08-07] MEDS ORDERED: BISMUTH SUBSALICYLATE 262 MG/15 ML BTL PO PRN (12:22)
[2020-08-07] MEDS ORDERED: ACETAMINOPHEN 325 MG TABLET (FP) PO PRN ×2 (12:22)
[2020-08-07] MEDS ORDERED: MAGNESIUM CITRATE 300 ML BOTTLE PO PRN (12:22)
[2020-08-07] MEDS: PRENATAL VITAMINS W/ FOLIC ACID TABLET (FP) PO SCH (13:31)
[2020-08-07] MEDS: hydrOXYzine PAMOATE 25 MG CAPSULE (FP) PO SCH ×3 (13:31→22:14)
[2020-08-07] MEDS: MELATONIN 5 MG TABLETS PO SCH (22:14)
[2020-08-07] MEDS: THIAMINE HCL 100 MG TABLET (FP) PO SCH (22:14)
[2020-08-08] MEDS: METHOCARBAMOL 500 MG TABLET PO PRN ×2 (01:50→09:26)
[2020-08-08] MEDS: hydrOXYzine PAMOATE 25 MG CAPSULE (FP) PO SCH ×5 (05:48→22:03)
[2020-08-08] MEDS: cloNIDine HCL 0.1 MG TABLET PO PRN ×2 (05:49→09:26)
[2020-08-08] MEDS ORDERED: METHADONE HCL 10 MG TABLET (FOR DETOX USE ONLY) ONE (08:37)
[2020-08-08] MEDS ORDERED: METHADONE HCL 5 MG TABLET (FOR DETOX USE ONLY) ONE (08:38)
[2020-08-08] MEDS: NICOTINE 7 MG/24 HOURS TOPICAL PATCH TD SCH (09:26)
[2020-08-08] MEDS: PRENATAL VITAMINS W/ FOLIC ACID TABLET (FP) PO SCH (09:26)
[2020-08-08] MEDS ORDERED: METHADONE (DETOX) 20 MG, METHADONE (DETOX) 5 MG PO ONE (10:00)
[2020-08-08] MEDS: MAG HYDROX/AL HYDROX/SIMETH 30 ML UNIT-DOSE CUP PO PRN (17:44)
[2020-08-08] MEDS: MELATONIN 5 MG TABLETS PO SCH (22:02)
[2020-08-08] MEDS: THIAMINE HCL 100 MG TABLET (FP) PO SCH (22:03)
[2020-08-09] MEDS: cloNIDine HCL 0.1 MG TABLET PO PRN ×2 (01:54→23:28)
[2020-08-09] MEDS: METHOCARBAMOL 500 MG TABLET PO PRN ×3 (01:54→23:01)
[2020-08-09] MEDS: hydrOXYzine PAMOATE 25 MG CAPSULE (FP) PO SCH ×5 (05:14→22:00)
[2020-08-09] MEDS: PRENATAL VITAMINS W/ FOLIC ACID TABLET (FP) PO SCH (09:52)
[2020-08-09] MEDS ORDERED: METHADONE HCL 10 MG TABLET (FOR DETOX USE ONLY) PO ONE (10:00)
[2020-08-09] MEDS: MAG HYDROX/AL HYDROX/SIMETH 30 ML UNIT-DOSE CUP PO PRN (11:01)
[2020-08-09] MEDS: NICOTINE 7 MG/24 HOURS TOPICAL PATCH TD SCH (11:02)
[2020-08-09] MEDS: ONDANSETRON *ODT* 4 MG TABLET SL PRN ×2 (11:55→23:28)
[2020-08-09 12:43] LABS: HEMATOCRIT 38.4 % (35.4-49); HEMOGLOBIN 12.8 GM/dL (11.7-16.9); MCH 30.2 pg (25.7-33.7); MCHC 33.4 g/dl (32.0-35.9); MEAN CELL VOLUME 90.3 fl (80-96); PLATELET COUNT 232 K/MM3 (134-434); RBC 4.25 M/mm3 (4.00-5.60); RDW 14.9 % (11.9-15.9); WHITE BLOOD COUNT 6.2 K/mm3 (4.0-10.0)
[2020-08-09 12:49] LABS: POTASSIUM 3.9 mmol/L (3.5-5.1)
[2020-08-09 12:53] LABS: CALCIUM 9.1 mg/dL (8.5-10.1)
[2020-08-09 12:54] LABS: ALBUMIN 3.5 g/dl (3.4-5.0); BLOOD UREA NITROGEN 11.8 mg/dL (7-18)
[2020-08-09 12:59] LABS: BILIRUBIN,TOTAL 0.6 mg/dL (0.2-1); TOT PROT 7.2 g/dl (6.4-8.2)
[2020-08-09 13:49] LABS: HIV INTERPRETATION NEGATIVE (NEGATIVE)
[2020-08-09] MEDS: MELATONIN 5 MG TABLETS PO SCH (22:00)
[2020-08-09] MEDS: THIAMINE HCL 100 MG TABLET (FP) PO SCH (22:00)
[2020-08-10] MEDS ORDERED: MELATONIN 5 MG TABLETS PO ONE (02:04)
[2020-08-10] MEDS: hydrOXYzine PAMOATE 25 MG CAPSULE (FP) PO SCH ×2 (05:15→10:09)
[2020-08-10] MEDS: ONDANSETRON *ODT* 4 MG TABLET SL PRN (05:55)
[2020-08-10] MEDS ORDERED: METHADONE HCL 10 MG TABLET (FOR DETOX USE ONLY) ONE (09:25)
[2020-08-10] MEDS ORDERED: METHADONE HCL 5 MG TABLET (FOR DETOX USE ONLY) ONE (09:25)
[2020-08-10] MEDS ORDERED: METHADONE (DETOX) 10 MG, METHADONE (DETOX) 5 MG PO ONE (10:00)
[2020-08-10] MEDS: PRENATAL VITAMINS W/ FOLIC ACID TABLET (FP) PO SCH (10:08)
[2020-08-10] MEDS: NICOTINE 7 MG/24 HOURS TOPICAL PATCH TD SCH (10:09)
[2020-08-10] MEDS ORDERED: TRIMETHOBENZAMIDE HCL 200MG/2ML INJ IM PRN (10:14)
[2020-08-10] MEDS: MAG HYDROX/AL HYDROX/SIMETH 30 ML UNIT-DOSE CUP PO PRN (14:56)
[2020-08-10] MEDS: diazePAM 5 MG TABLET PO PRN ×2 (17:37→22:00)
[2020-08-10] MEDS: hydrOXYzine PAMOATE 25 MG CAPSULE (FP) PO PRN ×2 (17:38→22:00)
[2020-08-10] MEDS: THIAMINE HCL 100 MG TABLET (FP) PO SCH (22:00)
[2020-08-10] MEDS: MELATONIN 5 MG TABLETS PO SCH (22:00)
[2020-08-11] MEDS: MAG HYDROX/AL HYDROX/SIMETH 30 ML UNIT-DOSE CUP PO PRN (00:14)
[2020-08-11] MEDS: METHOCARBAMOL 500 MG TABLET PO PRN (08:59)
[2020-08-11] MEDS: PRENATAL VITAMINS W/ FOLIC ACID TABLET (FP) PO SCH (08:59)
[2020-08-11] MEDS: NICOTINE 7 MG/24 HOURS TOPICAL PATCH TD SCH (09:00)
[2020-08-11] MEDS ORDERED: METHADONE HCL 10 MG TABLET (FOR DETOX USE ONLY) PO ONE (10:00)
[2020-08-11] MEDS: diazePAM 5 MG TABLET PO PRN ×2 (17:06→21:33)
[2020-08-11] MEDS: MELATONIN 5 MG TABLETS PO SCH (21:31)
[2020-08-11] MEDS: THIAMINE HCL 100 MG TABLET (FP) PO SCH (21:31)
[2020-08-12] MEDS: MAG HYDROX/AL HYDROX/SIMETH 30 ML UNIT-DOSE CUP PO PRN (03:06)
[2020-08-12] MEDS ORDERED: METHADONE HCL 5 MG TABLET (FOR DETOX USE ONLY) PO ONE (06:00)
[2020-08-12] MEDS: NICOTINE 7 MG/24 HOURS TOPICAL PATCH TD SCH (09:16)
[2020-08-12] MEDS: PRENATAL VITAMINS W/ FOLIC ACID TABLET (FP) PO SCH (09:16)
[2020-08-12 09:20] VITALS: BP 132/88; PULSE 70; TEMP 97.3
== END 2020-08-12 09:23 | disposition home or self-care (01) | DRG 897 ==
LOC: YASAS 11:01 → Y3N 12:11
PROVIDERS: ADMIT Allergy & Immunology; ATTEND Allergy & Immunology
PROC: HZ2ZZZZ Detoxification Services for Substance Abuse Treatment (ICD-10-PCS; principal; 2020-08-07)
DX: F11.23 Opioid dependence with withdrawal (principal); F13.10 Sedative, hypnotic or anxiolytic abuse, uncomplicated; F17.210 Nicotine dependence, cigarettes, uncomplicated; R73.9 Hyperglycemia, unspecified; Z87.81 Personal history of (healed) traumatic fracture
CPT/HCPCS: 36415; 71046-TC-FY; 80053; 82947; 85027; 86780; 87389; 93005; 93010; C9803; J0735; Q0162; U0003